=== PATIENT | male | born 1960 | race Caucasian/White ===

== ENCOUNTER 2021-03-18 20:22 | Emergency (ER) | payer SELFPAY ==
[~2021-03-18] VITALS: Ht 188 cm; Wt 85.7 kg
--- NOTE | 2021-03-18 20:30 | NUR ---
PT [id number]
[2021-03-18 20:44] VITALS: BP 118/79
--- NOTE | 2021-03-18 21:45 | NUR ---
NO ANSWER IN LOBBY
[2021-03-18 22:15] LABS: BASOPHILS % (AUTO) 0 % (0-1); EOSINOPHILS % (AUTO) 4 % (1-7); LYMPHOCYTES % (AUTO) 16 % (22-44); MEAN CORPUSCULAR HEMOGLOBIN 30.5 pg (27.5-34.5); MEAN CORPUSCULAR HGB CONC 34.2 g/dL (33.2-36.2); MEAN PLATELET VOLUME 8.7 fL (7.4-10.4); MONOCYTES % (AUTO) 9 % (2-9); NEUTROPHILS % (AUTO) 71 % (42-75); PLATELET COUNT 315 x10^3/uL (130-400); RED BLOOD COUNT 4.27 x10^6/uL (4.38-5.82); RED CELL DISTRIBUTION WIDTH 14.1 % (9.4-14.8)
[2021-03-18 22:27] LABS: ALANINE AMINOTRANSFERASE 58 U/L (12-78); ALBUMIN 3.3 g/dL (3.4-5.0); ANION GAP 3 mmol/L (5-15); CHLORIDE 109 mmol/L (98-107); CREATININE 0.89 mg/dL (0.7-1.3)
[2021-03-18 22:29] LABS: ALKALINE PHOSPHATASE 64 U/L (45-117); BILIRUBIN,TOTAL 0.8 mg/dL (0.2-1.0); TOTAL PROTEIN 6.9 g/dL (6.4-8.2)
--- NOTE | 2021-03-18 23:34 | NUR ---
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
[2021-03-19] MEDS ORDERED: CEPHALEXIN 500 MG CAPSULE ONE (00:14)
[2021-03-19] MEDS ORDERED: CEPHALEXIN 500 MG CAPSULE PO ONE (00:30)
== END 2021-03-19 00:20 | disposition home or self-care (01) ==
LOC: ED 20:52
DX: L03.115 Cellulitis of right lower limb (principal); F17.210 Nicotine dependence, cigarettes, uncomplicated
CPT/HCPCS: 36415; 80053; 85025; 99406